=== PATIENT | female | born 1945 | race Caucasian/White ===

== ENCOUNTER 2019-02-06 10:00 | Emergency (ER) | payer MEDICARE, BC ==
[2019-02-06 10:12] VITALS: BP 121/72
--- NOTE | 2019-02-06 11:14 | UC ---
General HPI - HPI Summary HPI Summary: Patient is a 73yo presenting with tick bite on R knee that she noticed this morning. States she believes she got it while gardening yesterday but is unsure of when it actually attached. States her tried removing it but mostly remains intact. Denies bleeding or drainage. Ear, chills, nausea, vomiting. Patient states she would like the treatment for Lyme disease and to have the tick removed. - History of Current Complaint Chief Complaint: [facility] Stated Complaint: TICK BITE Hx Obtained From: Patient Pain Intensity: 2 - Allergy/Home Medications Allergies/Adverse Reactions: Allergies Allergy/AdvReac Type Severity Reaction Status Date / Time Penicillins Allergy Unknown Verified 02/06/19 10:12 Reaction Details Home Medications: Home Medications Lysium For Cold Sore 1 tab PO DAILY 02/06/19 [History Confirmed 02/06/19] PMH/Surg Hx/FS Hx/Imm Hx - Surgical History Surgical History: Yes Surgery Procedure, Year, and Place: T&A - Family History Known Family History: Positive: None - Social History Occupation: Retired Alcohol Use: Occasionally Substance Use Type: None Smoking Status (MU): Never Smoked Tobacco Review of Systems All Other Systems Reviewed And Are Negative: No Constitutional: Positive: Negative. Negative: Fever, Chills Skin: Positive: Other - Tick bite to right knee Respiratory: Positive: Negative Cardiovascular: Positive: Negative Gastrointestinal: Positive: Negative Musculoskeletal: Positive: Negative Neurological: Positive: Negative Physical Exam Triage Information Reviewed: Yes Appearance: Well-Appearing, No Pain Distress, Well-Nourished Vital Signs: Initial Vital Signs Temp 97.7 F 02/06/19 10:08 Pulse 62 02/06/19 10:08 Resp 18 02/06/19 10:08 BP 121/72 02/06/19 10:08 Pulse Ox 100 02/06/19 10:08 Vital Signs Reviewed: Yes Eyes: Positive: Conjunctiva Clear ENT: Positive: Hearing grossly normal Neck: Positive: Supple Respiratory: Positive: No respiratory distress Neurological: Positive: Alert Psychological: Positive: Age Appropriate Behavior Skin: Positive: Other - 1 cm area of erythema with dark red center with head of tick still intact no drainage or signs of infection. Course/Dx - Course Course Of Treatment: Patient prescribed prophylactic dose of Doxy to prevent Lyme disease. Attempted to remove the remainder of the check with some success. She started to continue with warm compresses to the area to help ease remainder of tick out. Instructed her not to go to for the tick as this may cause infection. Educated on signs and symptoms of infection and to return or follow up with or go to ED if they occur. Educated on tick bites and Lyme disease and to follow- up with PCP if needed. Patient voiced understanding and agreed with the treatment plan. - Diagnoses Provider Diagnosis: Tick bite of right knee Discharge ED - Sign-Out/Discharge Documenting (check all that apply): Patient Departure All imaging exams completed and their final reports reviewed: No Studies - Discharge Plan Condition: Stable Disposition: HOME Prescriptions: DOXYcycline CAP(*) [DOXYcycline 100MG CAP(*)] 200 mg PO ONCE #2 cap Patient Education Materials: Tick Bite (ED) Referrals: Mya Chase MD [Primary Care Provider] - If Needed Additional Instructions: As discussed, take the one-time dose of Doxycycline to prevent Lyme Disease. It is recommended that you take this with food to prevent stomach upset. No further treatment is required. You may apply warm compresses 2-3 times daily to help ease the remainder of the tick out. Follow up with your PCP if you experience a rash where you were the tick bit you within the next month. Return or go to the emergency room if you experience fever, nausea and vomiting , or increasing redness and warmth or drainage from the area. - Billing Disposition and Condition Condition: STABLE Disposition: Home - Attestation Statements Provider Attestation: Per institutional requirements, I have reviewed the chart, however, I was not consulted specifically or made aware of this patient by the midlevel provider. I did not personally evaluate, interact with , or disposition this patient.
== END 2019-02-06 10:52 | disposition home or self-care (01) ==
LOC: UCEAST 10:00
DX: S80.261A Insect bite (nonvenomous), right knee, initial encounter (principal); Z88.0 Allergy status to penicillin; W57.XXXA Bitten or stung by nonvenomous insect and other nonvenomous arthropods, initial encounter; Y92.9 Unspecified place or not applicable
CPT/HCPCS: 99212; G0463